=== PATIENT | female | born 1980 | race Caucasian/White ===

== ENCOUNTER → 2023-04-18 07:58 | Outpatient (REF) | payer OTHER, SELFPAY | LOC: HWRAD 07:58 | PROVIDERS: ATTENDING PHYSICIAN Nurse Practitioner Adult Health; FAMILY PHYSICIAN Family Medicine | DX: N93.9 Abnormal uterine and vaginal bleeding, unspecified (principal); R10.2 Pelvic and perineal pain; R31.0 Gross hematuria | CPT/HCPCS: 76770; 76830; 76856 ==

== ENCOUNTER 2023-04-24 23:42 | Inpatient (IN) | payer OTHER, SELFPAY ==
[2023-04-24 16:46] VITALS: BP 116/90
[2023-04-24 17:06] LABS: % Basophils 0.1 % (0-2); % Immature Granulocytes 0.3 % (0-0.5); % Lymphocytes 4.7 % (20.5-51.1); % Monocytes 4.8 % (1.7-9.3); % Neutrophils 90.1 % (42.2-75.2); Absolute Lymphocytes 0.4 10^3/uL (1.2-3.4); Absolute Monocytes 0.4 10^3/uL (0.1-0.6); Absolute Neutrophils 7.1 10^3/uL (1.4-6.5); Hemoglobin 13.4 g/dL (12.0-16.0); Mean Corp Hgb Conc. 34.4 g/dL (33.0-37.0); Mean Corpuscular Hgb 31.7 pg (27.0-31.0); Mean Corpuscular Volume 92.2 fL (81.0-99.0); Mean Platelet Volume 9.7 fL (7.4-10.4); Nucleated Red Blood Cells % 0 %; Platelet Count 297 10^3/uL (130-400); Red Blood Cell Count 4.23 10^6/uL (4.20-5.40); Red Cell Dist. Width 11.6 % (11.5-14.5); White Blood Cell Count 7.9 10^3/uL (4.8-10.8)
[2023-04-24 17:12] LABS: Urine Albumin Trace (Neg - Trace); Urine Bilirubin 1+ (Negative); Urine Character Slightly Cloudy (Clear); Urine Color Yellow; Urine Glucose Negative (Negative); Urine Ketone 1+ (Negative); Urine Leukocyte 2+ (Negative); Urine Nitrite Negative (Negative); Urine Occult Blood 4+ (Negative); Urine Urobilinogen Negative (Neg - 1+)
[2023-04-24 17:18] LABS: HCG, Serum Qualitative Screen Negative
[2023-04-24 17:22] LABS: ALT (SGPT) 291 U/L (0-35); AST (SGOT) 439 U/L (14-36); Albumin 5.1 g/dl (3.5-5.0); Alkaline Phosphatase 81 U/L (38-126); Blood Urea Nitrogen 15 mg/dl (7-17); Calcium 9.7 mg/dl (8.4-10.2); Carbon Dioxide 25 mmol/L (22-30); Chloride 104 mmol/L (98-107); Glucose 118 mg/dl (70-99); Lipase 171 U/L (23-300); Potassium 4.2 mmol/L (3.5-5.1); Sodium 136 mmol/L (135-145); Total Bilirubin 0.7 mg/dl (0.2-1.3); Total Protein 8.1 g/dl (6.3-8.2); eGFR > 60.00
[2023-04-24 17:33] LABS: Urine Bacteria Moderate (Negative); Urine Mucus Moderate; Urine Squamous Cell >30 /LPF (Few); Urine White Cell 30-40 /HPF (0-5)
--- NOTE | 2023-04-24 19:32 | ED.GENMED ---
History of Present Illness
General
Chief Complaint: Abdominal Symptoms
Source: patient
Exam Limitations: none
Time Seen by Provider: 04/24/23 19:30
Travel History
Have you had any contact with someone who has COVID-19?: No
Do you have any symptoms of coronavirus? Fever > 100 degrees, chills, cough, shortness of breath, sore throat, loss of taste or smell, muscle aches, or headache?: No
History of Present Illness
History of Present Illness:
This is a 42 year old female that comes in with c/o nausea and vomiting. States that yesterday she had diarrhea most of the day. Then last night her stomach sounded like there were gremelins in her abd. Staes that today she has had vomiting and
diarrhea and can't keep anything down. States that she does have a headache. Denies any fever, chills, chest pain, SOB, dizziness, urinary burning.
Past History
Past History
ED Past Medical History: GERD and Other (Renal calculus, )
ED Past Surgical History: Cholecystectomy, Tonsilectomy and Urological
Social History
Tobacco: Non-smoker
Alcohol: None
Personal:
Living: with family
Employment: Other ([employer])
Review of Systems
Review of Systems
All Other Systems: ROS reviewed and negative except as documented in HPI and ROS
Constitutional: Reports no symptoms; Denies fever or chills
EENT: Reports no symptoms
Respiratory: Reports no symptoms; Denies cough or trouble breathing
Cardiac: Reports no symptoms; Denies chest pain
ABD/GI: Reports abdominal pain, nausea, vomiting and diarrhea
: Reports no symptoms; Denies dysuria, frequency or urgency
Musculoskeletal: Reports no symptoms
Skin: Reports no symptoms
Neurological: Reports headache; Denies dizzy
Psychiatric: Reports no symptoms
Phy Exam
General Physical Exam
General Presentation: no apparent distress
General age: appears stated age
General Skin: warm and dry
General Habitus: normal
General Mental: alert
General Hydration: appears well hydrated
ENT Exam
ENT Exam: TM's normal, pharynx normal and neck supple
Eye Exam
Eye Exam: EOMI
Cardiovascular Exam
Cardiovascular Exam: regular rate/rhythm, no edema, no murmur and normal peripheral pulses
Pulmonary Exam
Pulmonary Exam: lungs clear, no respiratory distress, no rales, chest non tender, no crackles, no rhonchi, no wheezing and no cough
Gastrointestinal Exam
Gastrointestinal Exam: soft, no organomegaly, no pulsatile mass, non distended, tender (Epigastric area with palpation) and other (Hyperactive bowel soundds)
Musculoskeletal Exam
Musculoskeletal Exam: full ROM and no edema
Skin Exam
Skin Exam: normal color, warm/dry, no rash and no petechia
Psychiatric Exam
Psychiatric Exam: normal mood/affect
Course
Orders/Labs/Results
Orders:
Orders
04/24/23 16:49
Test Result ONCE
04/24/23 16:58
Complete Blood Count/With Diff Urgent
Comprehensive Metabolic Panel Urgent
Direct Bilirubin Urgent
Comment: ADD ON
HCG, Serum Qualitative Screen Urgent
Lipase Urgent
Urinalysis Reflex To Culture Urgent
Date Specimen was Collected: 04/24/23
Time Specimen was Collected: 16:49
Urine Microscopic Reflex Cult Urgent
Urine Culture Urgent
SAMSON Source: U
Specimen Description:
Date Specimen was Collected: 04/24/23
Time Specimen was Collected: 16:49
04/24/23 19:32
Add On- LAB Urgent
Tests Added?: Direct rupinder
04/24/23 19:49
0.9% Sodium Chloride 1000 ml [Nss] 1,000 ml IV BOLUS
Iohexol [Omnipaque] See Protocol PO NOW STA
04/24/23 19:50
CT Abd/pel W Iv And Oral Contr Urgent
Comment: elevated liver enzymes
Reason For Exam: Upper abd tenderness
Ondansetron Injectable [Zofran] 4 mg IV NOW STA
04/24/23 20:05
COVID-19 Antigen Urgent
Source: Nasal Swab
04/24/23 22:59
Pantoprazole [Protonix IV] 40 mg IV NOW STA
Sucralfate Suspension [Carafate Suspension] 1 gm PO NOW STA
Abnormal Lab Results
04/24/23
16:58
MCH 31.7 H pg
(27.0-31.0)
Absolute Neuts (auto) 7.1 H 10^3/uL
(1.4-6.5)
Absolute Lymphs (auto) 0.4 L 10^3/uL
(1.2-3.4)
Neutrophils % 90.1 H %
(42.2-75.2)
Lymphocytes % 4.7 L %
(20.5-51.1)
Glucose 118 H mg/dl
(70-99)
AST 439 H U/L
(14-36)
ALT 291 H U/L
(0-35)
Albumin 5.1 H g/dl
(3.5-5.0)
Urine Ketones 1+ A
(Negative)
Ur Occult Blood Reflex 4+ A
(Negative)
Urine Bilirubin 1+ A
(Negative)
Leukocyte Esterase Rfl 2+ A
(Negative)
Urine RBC 3-6 A /HPF
(0-2)
Urine WBC (Reflex) 30-40 A /HPF
(0-5)
Urine Bacteria (Reflex) Moderate A
(Negative)
04/24/23 16:58
04/24/23 16:58
Glucose nonfasting. AST/ALT significantly elevated. Urine contaminated Will repeat. Lipase normal at 171 , HCG negative.
Direct rupinder 0.1 normal
Vital Signs
Initial and Last Documented VS:
Initial Vital Signs
Temp Pulse Resp BP Pulse Ox
97.8 F 110 16 116/90 98
04/24/23 16:46 04/24/23 16:46 04/24/23 16:46 04/24/23 16:46 04/24/23 16:46
Last Documented Vital Signs
Temp Pulse Resp BP Pulse Ox
97.8 F 84 18 122/70 98
04/24/23 16:46 04/24/23 20:15 04/24/23 20:15 04/24/23 20:15 04/24/23 20:15
MDM/Problems Addressed
Differential Diagnosis Includes:
Common bile duct stone, Hepatitis, Viral syndrome
MDM/Problems Addressed:
This is a 42 year old female that comes in with c/o diarrhea and vomiting. States that this started yesterday and today it has continued and she is unable to keep anything down.
Will get labs, CT abd/pelvis, IV fluids and Zofran for the nausea. Explained to patient that her Liver enzymes are significantly elevated.
Back into see patient. Explained to patient that her Liver enzymes are extremely elevated. Her Urine is contaminated but on the CT scan there is a left nonobstructing stone. Patient continues with nausea and pain. Will admit for further evaluation.
Hospitalist notified.
Chronic conditions affecting care: Other (History of Renal calculus)
Acute Exacerbation and/or Progression of Chronic Illness:
NA
*Radiology
Radiology exam reviewed: radiology read reviewed (CT-Small nonobstructing left renal calculi. Symmetric bilateral renal excretion. Prior cholecystectomy. No acute abnormality throughout the abd and pelvis. )
*Pulse Oximetry
Patient hypoxic: no
*EKG
Interpreted by ED Provider?: NA
Rate: EKG- N/A
*[employer] Interpretation
Rate: [employer]- N/A
*Critical Care Note
Total Time (30-74mins, 75-104mins- exclusive of procedures): Not Applicable
ED Attending Note
-
Portions of this chart may have been created with voice recognition software.� Occasional wrong word or��sound alike� substitutions may have occurred due to the inherent limitations of voice recognition software.
Discharge Plan
Departure
Patient Disposition: Admit
Date of Disposition: 04/24/23
Time of Disposition: 23:16
Admit to: Med/Surg
Presentation/result/management discussed w/ accepting MD/DO: Hospitalist
Patient with high blood pressure during this ER visit?: No
Condition: Good
Covid-19: Not Applicable
Discharge Problem:
Elevated liver enzymes, Abdominal pain
Prescriptions:
No Action
ranitidine HCl [Zantac 75] 75 MG tablet
75 mg PO DAILY Qty: 20 0RF
diphenhydramine HCl [Banophen] 25 MG capsule
25 mg PO Q4HPRN PRN (Reason: rash, itching) Qty: 10 0RF
prednisone 50 MG tablet
50 mg PO DAILY Qty: 5 0RF
epinephrine [EpiPen] 0.3 MG/0.3/SYRINGE auto-injector
0.3 mg IM .STAT PRN (Reason: difficulty Breathing) Qty: 1 0RF
etodolac [Lodine XL] 400 MG tablet extended release 24 hr
400 mg PO DAILY
Referrals:
UNKNOWN - PT DOES,NOT KNOW [Unknown Provider] -
Interventions
Interventions:
*Risk Screen - Suicide Last Done: 04/24/23 20:15
*General Assessment Last Done: 04/24/23 20:15
*Neglect/Abuse Screening Last Done: 04/24/23 20:15
ED- Fall Risk Assessment Last Done: 04/24/23 20:41
*ED COVID-19 Vaccine History Last Done: 04/24/23 16:46
PU-Ndskyh-Exsgkrfjag Assessment Last Done: 04/24/23 20:41
[2023-04-24 20:07] LABS: Direct Bilirubin 0.1 mg/dl (0.0-0.4)
[2023-04-24] MEDS: NSS 1000 IV (20:10)
[2023-04-24] MEDS: ZOFRAN 4 MG IV (20:10)
[2023-04-24] MEDS: OMNIPAQUE 50 ML PO (20:10)
[2023-04-24 20:12] VITALS: BMI 22.4
[2023-04-24 20:15] VITALS: BP 122/70
[2023-04-24 20:44] LABS: COVID-19 Antigen Negative (Negative)
[2023-04-24] MEDS: CARAFATE SUSPENSION 1 GM PO (23:03)
[2023-04-24 23:04] VITALS: BP 126/89
[2023-04-24] MEDS: PROTONIX IV 40 MG IV (23:04)
--- NOTE | 2023-04-24 23:36 | HPS.HSE ---
Family Physician
-
Family Physician: PAUL Aleman
Chief Complaint
-
diarrhea/vomiting
History of Present Illness
42-year-old female past medical history of GERD, renal calculi, gallstones status post cholecystectomy presenting with nausea and vomiting and diarrhea. Yesterday she had diarrhea most of the day which was watery. She did have some epigastric
abdominal pain yesterday. Today she has had multiple episodes of vomiting in addition to diarrhea and cannot keep anything down. She does does have a headache. She denies any fevers or chills, chest pain, shortness of breath, dizziness or urinary
symptoms.
She did have a sandwich at [employer] on Monday. Denies any other recent restaurant food. Denies any sick contacts.
Patient has a history of renal calculi and periodically developed left flank pain. In early March she did have blood in her urine and saw her primary care physician who was concerned she had a UTI and check urinalysis and started on antibiotics.
Urinalysis was negative and antibiotic was discontinued. Hematuria improved spontaneously. Denies any urinary symptoms at this time.
Denies smoking or alcohol.
Medical History
Past Medical History
Past Medical History: Reports Other (GERD, renal calculi, gallstones status post cholecystectomy)
Past Surgical History: Reports Cholecystectomy and Tonsilectomy
Social History
Tobacco: Non-smoker
Alcohol: Occasional
Drug: None
Family History
Family History: Not pertinent
Allergies / Home Medications
Allergies reflects when Allergies were last updated in [facility].
Home Medications with original date entered in [facility]
Allergy/Medication List:
Allergies
Allergy/AdvReac Type Severity Reaction Status Date / Time
levofloxacin [From Levaquin] Allergy Rash Verified 04/24/23 16:48
prochlorperazine Allergy Unknown Verified 04/24/23 16:48
[From Compazine]
Home Medications
valacyclovir 500 mg tablet 500 mg PO HS 04/24/23
Review of Systems
-
History Source: Patient
A 12 point ROS was completed and negative except as noted: Yes
Constitutional: Reports No Symptoms
EENT: Reports No Symptoms
Respiratory: Reports No Symptoms
Cardiac: Reports No Symptoms
Abdomen/GI: Reports See HPI
: Reports No Symptoms
Musculoskeletal: Reports No Symptoms
Skin: Reports No Symptoms
Neurological: Reports No Symptoms
Endocrine: Reports No Symptoms
Hematologic/Lymphatic: Reports No Symptoms
Psych: Reports No Symptoms
Physical Exam
Vital Signs
Vital Signs
Temp Pulse Resp BP Pulse Ox
97.8 F 99 18 126/89 99
04/24/23 16:46 04/24/23 23:04 04/24/23 23:04 04/24/23 23:04 04/24/23 23:04
Physical Exam
General: Well Developed, Well Nourished and No Apparent Distress
HEENT: NormoCephalic, Moist mucous membranes and Atraumatic
Respiratory: Clear
Cardiac: S1/S2 and Regular Rhythm; No Murmur or Rub
GI: Soft, Non Tender, Non Distended and Normal Bowel Sounds; No Organomegaly
Rectal: Deferred by Provider
Musculoskeletal: No Clubbing, No Cyanosis and No Edema
Skin: No Rash
Neuro: Nonfocal/grossly intact
Laboratory Results
-
04/24/23 16:58
04/24/23 16:58
Laboratory Results
Total Bilirubin 0.7 mg/dl (0.2-1.3) 04/24/23 16:58
AST 439 U/L (14-36) H 04/24/23 16:58
ALT 291 U/L (0-35) H 04/24/23 16:58
Alkaline Phosphatase 81 U/L (38-126) 04/24/23 16:58
Lipase 171 U/L (23-300) 03/04/24 16:58
Data Reviewed
-
Lab Data: Labs Reviewed by me
Old Records: Reviewed
Impression/Plan
-
IMPRESSION:
PLAN:
# Abdominal pain/vomiting/diarrhea/enteritis likely secondary to viral gastroenteritis, versus hepatitis versus less likely choledocholithiasis
-Lack of hyperbilirubinemia makes choledocholithiasis less likely
-Check stool culture, norovirus, C. difficile
-Check hepatitis serologies
-CT abdomen pelvis no acute pathology
-IV fluids
-Trend liver enzymes, consider GI and MRI if worsening
-N.p.o.
History of gallstone status post cholecystectomy
GERD
History of renal calculus
-CT abdomen shows small bowel 14 left renal calculi
History of oral ulcers
-Continue prophylactic acyclovir
Full code
DVT prophylaxis heparin
N.p.o.
[2023-04-25] MEDS: NSS 1000 IV ×3 (00:14→18:08)
[2023-04-25 00:59] LABS: Urine Albumin Trace (Neg - Trace); Urine Bilirubin Negative (Negative); Urine Character Clear (Clear); Urine Color Yellow; Urine Glucose Negative (Negative); Urine Ketone 2+ (Negative); Urine Leukocyte Trace (Negative); Urine Nitrite Negative (Negative); Urine Occult Blood 1+ (Negative); Urine Urobilinogen Negative (Neg - 1+)
[2023-04-25 01:20] LABS: Urine Bacteria Few (Negative); Urine Squamous Cell 16-20 /LPF (Few)
[2023-04-25 06:20] VITALS: BP 101/66
[2023-04-25 06:34] LABS: % Basophils 0.4 % (0-2); % Eosinophils 0.9 % (0-6); % Immature Granulocytes 0.4 % (0-0.5); % Lymphocytes 19.2 % (20.5-51.1); % Monocytes 16.2 % (1.7-9.3); % Neutrophils 62.9 % (42.2-75.2); Absolute Eosinophils 0.1 10^3/uL (0-0.7); Absolute Lymphocytes 1.1 10^3/uL (1.2-3.4); Absolute Monocytes 0.9 10^3/uL (0.1-0.6); Absolute Neutrophils 3.5 10^3/uL (1.4-6.5); Hematocrit 34.5 % (37.0-47.0); Hemoglobin 11.9 g/dL (12.0-16.0); Mean Corp Hgb Conc. 34.5 g/dL (33.0-37.0); Mean Corpuscular Hgb 31.6 pg (27.0-31.0); Mean Corpuscular Volume 91.5 fL (81.0-99.0); Mean Platelet Volume 10.1 fL (7.4-10.4); Nucleated Red Blood Cells % 0 %; Platelet Count 257 10^3/uL (130-400); Red Blood Cell Count 3.77 10^6/uL (4.20-5.40); Red Cell Dist. Width 11.9 % (11.5-14.5); White Blood Cell Count 5.5 10^3/uL (4.8-10.8)
[2023-04-25 06:45] LABS: ALT (SGPT) 404 U/L (0-35); AST (SGOT) 286 U/L (14-36); Albumin 3.9 g/dl (3.5-5.0); Alkaline Phosphatase 75 U/L (38-126); Blood Urea Nitrogen 11 mg/dl (7-17); Carbon Dioxide 27 mmol/L (22-30); Chloride 107 mmol/L (98-107); Estimated Creatinine Clearance 79 ml/min; Glucose 95 mg/dl (70-99); Potassium 4.2 mmol/L (3.5-5.1); Sodium 138 mmol/L (135-145); Total Bilirubin 0.4 mg/dl (0.2-1.3); Total Protein 6.3 g/dl (6.3-8.2); eGFR > 60.00
[2023-04-25 06:58] LABS: Hepatitis B Surface Antigen Negative (Negative)
[2023-04-25 07:01] LABS: Hepatitis A IgM Antibody Negative (Negative); Hepatitis B Core Ab, IgM Negative (Negative)
[2023-04-25 07:15] LABS: Hepatitis B Surface Antibody Positive; Hepatitis C Antibody Negative (Negative)
--- NOTE | 2023-04-25 07:34 | W.PN.HOSP.TC ---
Today's Communication/Plan
-
see A/P
Assessment / Plan
Assessment / Plan
42-year-old female past medical history of GERD, renal calculi, gallstones status post cholecystectomy; presenting with nausea and vomiting and diarrhea.�She had diarrhea most of the day which was watery.�She did have some epigastric abdominal
pain.� On DOA, she has had multiple episodes of vomiting in addition to diarrhea and cannot keep anything down.�She does does have a headache.� She denies any fevers or chills, chest pain, shortness of breath, dizziness or urinary symptoms.
She did have a sandwich at [employer] on Monday.� Denies any other recent restaurant food.� Denies any sick contacts.
Patient has a history of renal calculi and periodically developed left flank pain.�In early March she did have blood in her urine and saw her primary care physician who was concerned she had a UTI and check urinalysis and started on antibiotics.�
Urinalysis was negative and antibiotic was discontinued.� Hematuria improved spontaneously.� Denies any urinary symptoms at this time.
Denies smoking or alcohol.
A/P:
# Abdominal pain/vomiting/diarrhea likely secondary to viral gastroenteritis potentiated by ?Valtrex S/E
# Transaminitis
CT abdomen pelvis no acute pathology
hepatitis serologies negative except for hep B surface Ab indicting immunity
Check stool culture, norovirus, C. difficile
Trend liver enzymes, LFT improving
cont IV fluids, start clears and ADAT
Check UDS
# History of gallstone status post cholecystectomy
# GERD
# History of renal calculus
CT abdomen shows small bowel 14 left renal calculi
# History of oral ulcers
Pt is on daily prophylactic Valtrex for nasal herpes
Hold PO Valtrex for now and consider resuming when gastroenteritis has resolved
Full code
DVT prophylaxis Lovenox SQ
DW RN
Anticipated Discharge: Within 24 hours
Subjective/Interval History
-
Date of Service: April 25, 2023
Objective Data
-
Labs:
Laboratory Results
04/25/23
05:53
WBC 5.5
Hgb 11.9 L
Hct 34.5 L
Plt Count 257
Sodium 138
Potassium 4.2
Chloride 107
Carbon Dioxide 27
BUN 11
Creatinine 0.8
Glucose 95
Calcium 9.0
Total Bilirubin 0.4
AST 286 H
ALT 404 H
Alkaline Phosphatase 75
Vital Signs:
Vital Signs
Temp Pulse Resp BP Pulse Ox
36.7 C 99 18 101/66 96
04/25/23 06:20 04/24/23 23:04 04/24/23 23:04 04/25/23 06:20 04/25/23 06:20
Review of Systems
-
Abdomen/GI: Denies Abdominal Pain (resolved), Nausea (resolved) or Vomiting (resolved)
Physical Exam
-
General: Well Developed, Well Nourished, No Apparent Distress, Comfortable and Conversant; Negative Respiratory Distress
HEENT: Normocephalic, Atraumatic, Nose Appears Normal and Ears Appear Normal; Negative Oxygen
Respiratory: Clear to Auscultation and Non Labored Respirations; Negative Accessory Resp Muscle Use
Cardiac: Regular Rhythm and S1/S2
GI: Soft, Nontender, Nondistended and Normal Bowel Sounds
Skin: Warm and Dry
Neuro: Awake, Alert, Oriented and AO x 3
Psych: Calm and Intact Judgement/Insight
Data Reviewed
-
Diagnostic Radiology: Report Reviewed by me
Labs: Labs Reviewed by me
[2023-04-25 08:25] LABS: HCG, Urine Qualitative Screen Negative
[2023-04-25 08:50] VITALS: BP 110/68
[2023-04-25 08:50] LABS: Amphetamines Negative (Negative); Barbiturates Negative (Negative); Benzodiazepines Negative (Negative); Buprenorphine Negative (Negative); Cocaine Negative (Negative); Marijuana Negative (Negative); Methadone Negative (Negative); Methamphetamines Negative (Negative); Opiates Negative (Negative); Phencyclidine Negative (Negative); Tricyclic Antidepressants Negative (Negative)
--- NOTE | 2023-04-25 14:55 | CM ---
CM met with patient in room. Patient confirmed demographics. Patient lives independently with . No history of VN, SNF or DME. Patient is active with her PCP. Patient uses [facility] on [address].
PLAN: Home no needs.
[2023-04-25 18:00] VITALS: BP 107/75
--- NOTE | 2023-04-25 18:16 | PTCARENOTE ---
Pt is currently in the ED in a inpatient bed waiting for a bed upstairs, pt is ambulatory, on r.a, and BRP. Pt is able to do self hygiene care, pt is currently in bed with call rodriguez in reach, will be in soon to visit her.
[2023-04-25 22:40] VITALS: BP 104/74
[2023-04-25] MEDS: TYLENOL 650 MG PO (23:36)
[2023-04-26] MEDS: NSS 1000 IV (06:10)
[2023-04-26 06:12] LABS: Hematocrit 29.8 % (37.0-47.0); Hemoglobin 10.8 g/dL (12.0-16.0); Mean Corp Hgb Conc. 36.2 g/dL (33.0-37.0); Mean Corpuscular Hgb 32.2 pg (27.0-31.0); Platelet Count 208 10^3/uL (130-400); Red Blood Cell Count 3.35 10^6/uL (4.20-5.40); Red Cell Dist. Width 11.9 % (11.5-14.5); White Blood Cell Count 5.1 10^3/uL (4.8-10.8)
[2023-04-26 06:22] LABS: ALT (SGPT) 369 U/L (0-35); AST (SGOT) 169 U/L (14-36); Albumin 3.4 g/dl (3.5-5.0); Alkaline Phosphatase 84 U/L (38-126); Blood Urea Nitrogen 7 mg/dl (7-17); Calcium 8.4 mg/dl (8.4-10.2); Carbon Dioxide 23 mmol/L (22-30); Chloride 111 mmol/L (98-107); Estimated Creatinine Clearance 105 ml/min; Glucose 88 mg/dl (70-99); Potassium 3.6 mmol/L (3.5-5.1); Sodium 138 mmol/L (135-145); Total Bilirubin 0.3 mg/dl (0.2-1.3); Total Protein 5.7 g/dl (6.3-8.2); eGFR > 60.00
--- NOTE | 2023-04-26 07:42 | W.PN.HOSP.TC ---
Addendum entered and electronically signed by Rupal Curry MD 04/26/23 12:54:
total DC time 35 min
Original Note:
Today's Communication/Plan
-
LFT slightly better today (not worsened), check LFT outpt
DC home today
Assessment / Plan
Assessment / Plan
42-year-old female past medical history of GERD, renal calculi, gallstones status post cholecystectomy; presenting with nausea and vomiting and diarrhea.�She had diarrhea most of the day which was watery.�She did have some epigastric abdominal
pain.� On DOA, she has had multiple episodes of vomiting in addition to diarrhea and cannot keep anything down.�She does does have a headache.� She denies any fevers or chills, chest pain, shortness of breath, dizziness or urinary symptoms.
She did have a sandwich at [employer] on Monday.� Denies any other recent restaurant food.� Denies any sick contacts.
Patient has a history of renal calculi and periodically developed left flank pain.�In early March she did have blood in her urine and saw her primary care physician who was concerned she had a UTI and check urinalysis and started on antibiotics.�
Urinalysis was negative and antibiotic was discontinued.� Hematuria improved spontaneously.� Denies any urinary symptoms at this time.
Denies smoking or alcohol.
A/P:
# Abdominal pain/vomiting/diarrhea likely secondary to viral gastroenteritis potentiated by ?Valtrex S/E
# Transaminitis likely due to above
CT abdomen pelvis no acute pathology
hepatitis serologies negative except for hep B surface Ab indicating prior immunity
No further BM here hence unable to check for stool culture, norovirus, C. difficile
Trend liver enzymes, LFT slightly improving, recc to continue monitor LFT outpt with result to PCP
Also recc outpt GI follow up.
UDS negative
diet advanced to regular , and pt tolerated well
# History of gallstone status post cholecystectomy
# GERD
# History of renal calculus
CT abdomen shows small bowel 14 left renal calculi
# History of oral ulcers
Pt is on daily prophylactic Valtrex for nasal herpes
Hold PO Valtrex for now and consider resuming when gastroenteritis has resolved
Full code
DVT prophylaxis Lovenox SQ
DW RN
Anticipated Discharge: Today
Subjective/Interval History
-
Date of Service: April 26, 2023
Objective Data
-
Labs:
Laboratory Results
04/26/23
05:32
WBC 5.1
Hgb 10.8 L
Hct 29.8 L
Plt Count 208
Sodium 138
Potassium 3.6
Chloride 111 H
Carbon Dioxide 23
BUN 7
Creatinine 0.5 L
Glucose 88
Calcium 8.4
Total Bilirubin 0.3
AST 169 H
ALT 369 H
Alkaline Phosphatase 84
Vital Signs:
Vital Signs
Temp Pulse Resp BP Pulse Ox
36.8 C 85 17 104/74 96
04/25/23 18:00 04/25/23 22:40 04/25/23 18:00 04/25/23 22:40 04/25/23 22:40
Review of Systems
-
Abdomen/GI: Reports No Symptoms; Denies Abdominal Pain, Nausea or Vomiting
Physical Exam
-
General: Well Developed, Well Nourished, No Apparent Distress, Comfortable and Conversant; Negative Respiratory Distress
HEENT: Normocephalic, Atraumatic, Nose Appears Normal and Ears Appear Normal; Negative Oxygen
Respiratory: Clear to Auscultation and Non Labored Respirations; Negative Accessory Resp Muscle Use
Cardiac: Regular Rhythm and S1/S2
GI: Soft, Nontender, Nondistended and Normal Bowel Sounds
Skin: Warm and Dry
Neuro: Awake, Alert, Oriented and AO x 3
Psych: Calm and Intact Judgement/Insight
Data Reviewed
-
Diagnostic Radiology: Report Reviewed by me
Labs: Labs Reviewed by me
--- NOTE | 2023-04-26 12:31 | W.DCSUMMARY ---
Discharge Summary
Discharge Data
Date of Admission: 04/24/23
Date of Discharge: 04/26/23
-
Pending Results: No
Hospital Course
Principal Diagnosis:
Abdominal pain/vomiting/diarrhea likely secondary to viral gastroenteritis
Elevated liver enzymes likely due to above
Chronic Diagnoses:�
History of gallstone status post cholecystectomy
GERD
History of renal calculus
Nasal herpes on daily prophylactic Valtrex (hold Valtrex for now and consider resuming when LFT has returned to normal)
Consultations:�
None
Procedures:�
None
Clinical course:�
This is a 42-year-old female past medical history as stated above, who presented with nausea, vomiting and diarrhea.�She also had epigastric abdominal pain which has resolved subsequently.�
Problem 1:
Abdominal pain/vomiting/diarrhea likely secondary to viral gastroenteritis.
This was associated with elevated liver enzymes.
Her CT abdomen pelvis showed no acute pathology.
Her hepatitis serologies were negative except for hep B surface Ab which indicates prior immunity.
She has had no further bowel movement here, hence we were unable to check for stool culture, norovirus, or C. difficile.
Her liver enzymes improved slightly, and she has been informed to continue monitor LFT outpatient with result to her PCP.
She has been informed to hold Valtrex while awaiting her liver enzyme function to return to normal.
She tolerated diet well, and was cleared for discharge to continue outpatient follow-up/workup.
As for the rest of her medical problems, they were stable during her hospital stay.
Discharge Plan
-
Patient Disposition: Home (Routine Discharge)
Discharge Diagnosis/Procedures: Abdominal pain/vomiting/diarrhea likely secondary to viral gastroenteritis ; elevated liver function tests
Condition: Good
Diet: As tolerated and Regular
Activity: As tolerated
Driving Restrictions: As prior to admission
Blood Work: CBC, LFT in 1 week, result to PCP
Activity Restrictions/Additional Instructions:
Your AST was at 169 and ALT at 369 on the day of discharge.
Please check repeat LFT outpatient within 1 week and have results forwarded to your PCP.
Consider GI follow up (defer to your PCP).
Referrals:
Sheri Barr CRNP [Family Provider] - in less than 1 week
Additional Discharge Medication Instructions: Hold Valtrex for 1 week (until outpatient LFT results have returned to normal)
Prescriptions:
Held
valacyclovir 500 mg tablet
500 mg PO HS
Hold Instructions: Resume on 05/03/23.
Discharge Orders:
Discharge Patient (As Directed); Ordered 04/26/23
Ordered By: Rupal Curry
Discharge Date and Time
Discharge Date/Time: 04/26/23 08:20
Print Language: TAMAZIGHT
== END 2023-04-26 08:20 | disposition home or self-care (01) | DRG 392 ==
LOC: ED 23:42
PROVIDERS: Clinical Nurse Specialist Family Health; Emergency Medicine; ADMITTING PHYSICIAN Hospitalist; ATTENDING PHYSICIAN Internal Medicine; EMERGENCY PHYSICIAN Emergency Medicine; FAMILY PHYSICIAN Nurse Practitioner Adult Health
DX: A08.4 Viral intestinal infection, unspecified (principal); K21.9 Gastro-esophageal reflux disease without esophagitis; Z11.52 Encounter for screening for COVID-19
CPT/HCPCS: 74177; 80053; 80306; 81003; 81015; 81025; 82248; 83690; 83735; 84703; 85025; 85027; 86705; 86706; 86709; 86803; 87086; 87340; 87811; 96361; 96374; 96375; 99285; Q9967

== ENCOUNTER → 2023-07-06 12:33 | Outpatient (REF) | payer OTHER, SELFPAY | LOC: WDC 12:33 | PROVIDERS: ATTENDING PHYSICIAN Nurse Practitioner Adult Health; FAMILY PHYSICIAN Nurse Practitioner Adult Health | DX: Z12.31 Encounter for screening mammogram for malignant neoplasm of breast (principal) | CPT/HCPCS: 77063; 77067 ==

== ENCOUNTER → 2024-02-19 11:37 | Outpatient (REF) | payer OTHER, SELFPAY | LOC: HWRAD 11:37 | PROVIDERS: ATTENDING PHYSICIAN Surgery; FAMILY PHYSICIAN Nurse Practitioner Adult Health | DX: N20.0 Calculus of kidney (principal) | CPT/HCPCS: 74018 ==

== ENCOUNTER → 2024-03-07 12:50 | Outpatient (REF) | payer OTHER, SELFPAY | LOC: HWRAD 12:50 | PROVIDERS: ATTENDING PHYSICIAN Surgery; FAMILY PHYSICIAN Nurse Practitioner Adult Health | DX: N20.0 Calculus of kidney (principal) | CPT/HCPCS: 74018 ==

== ENCOUNTER 2024-03-19 06:28 | Day surgery (SDC) | payer OTHER, SELFPAY ==
[2024-03-19] VITALS (8 sets, daily range): BP systolic 96–120; BP diastolic 60–77; BMI 23.0
--- NOTE | 2024-03-19 14:30 | W.SUR.PREOP ---
Pre-Operative Surgical Note
-
I have examined this patient prior to the performance of the scheduled procedure.
The patient's condition is unchanged from the time of the current History and
Physical and the patient is able to undergo the scheduled procedure.
To OR for left ULS.
Left laterality marked.
[2024-03-19] MEDS: TRANSDERM-SCOP 1 PATCH TRANSDERM (15:07)
[2024-03-19] MEDS: Pyridium 200 MG PO (17:42)
[2024-03-19] MEDS: DETROL LA 4 MG PO (17:43)
[2024-03-23 18:03] LABS: Stone Analysis Mass 7 mg
== END 2024-03-19 18:47 | disposition home or self-care (01) ==
LOC: SDS 06:28
PROVIDERS: ATTENDING PHYSICIAN Surgery
DX: N20.2 Calculus of kidney with calculus of ureter (principal)
CPT/HCPCS: 52356; 74018; 76000; 82365; C1769; C2617

== ENCOUNTER 2024-04-17 11:46 | Outpatient (RCR) | payer OTHER, SELFPAY | END 2024-04-17 23:59 | disposition home or self-care (01) | LOC: RPT 11:46 | PROVIDERS: ATTENDING PHYSICIAN Physician Assistant; FAMILY PHYSICIAN Internal Medicine | DX: M54.12 Radiculopathy, cervical region (principal); M47.812 Spondylosis without myelopathy or radiculopathy, cervical region; M48.02 Spinal stenosis, cervical region; Z73.6 Limitation of activities due to disability | CPT/HCPCS: 97110; 97162 ==

== ENCOUNTER 2024-05-06 09:01 | Outpatient (RCR) | payer OTHER, SELFPAY | END 2024-05-06 23:59 | disposition home or self-care (01) | LOC: RPT 09:01 | PROVIDERS: ATTENDING PHYSICIAN Physician Assistant; FAMILY PHYSICIAN Internal Medicine | DX: M54.12 Radiculopathy, cervical region (principal); M47.812 Spondylosis without myelopathy or radiculopathy, cervical region; M48.02 Spinal stenosis, cervical region; M47.22 Other spondylosis with radiculopathy, cervical region; Z73.6 Limitation of activities due to disability | CPT/HCPCS: 97110; 97140 ==

== ENCOUNTER 2024-05-28 10:02 | Outpatient (RCR) | payer OTHER, SELFPAY | END 2024-05-28 11:08 | disposition home or self-care (01) | LOC: RPT 10:02 | PROVIDERS: ATTENDING PHYSICIAN Physician Assistant; FAMILY PHYSICIAN Internal Medicine | DX: M54.12 Radiculopathy, cervical region (principal); M48.02 Spinal stenosis, cervical region; M47.22 Other spondylosis with radiculopathy, cervical region; Z73.6 Limitation of activities due to disability; M47.812 Spondylosis without myelopathy or radiculopathy, cervical region | CPT/HCPCS: 97110; 97140 ==

== ENCOUNTER → 2024-07-17 16:40 | Outpatient (REF) | payer OTHER, SELFPAY | LOC: WDC 16:40 | PROVIDERS: ATTENDING PHYSICIAN Nurse Practitioner Adult Health; FAMILY PHYSICIAN Nurse Practitioner Adult Health | DX: Z12.31 Encounter for screening mammogram for malignant neoplasm of breast (principal) | CPT/HCPCS: 77063; 77067 ==